=== PATIENT | male | born 1995 | race Native Hawaiian/Other Pacific Islander ===

== ENCOUNTER 2025-03-11 00:36 | Emergency (ER) | payer MEDICAID ==
[~2025-03-11] VITALS: Ht 195.6 cm; Wt 163.6 kg
--- NOTE | 2025-03-11 00:45 | Physician Documentation ---
History of Present Illness ~ Stated Complaint: CP Time Seen by MD: 00:42 HPI This is a 29-year-old gentleman with a family history of AFib in all his siblings, known history of arrhythmia of unknown etiology, presents for evaluation of sudden onset substernal chest pain that he describes as sharp, less than 30 seconds, radiating to his right arm all the way down to his wrist, gradually improving on its own without any medication. This occurred shortly prior to arrival without any obvious trigger, trauma provocation. The particular palliating or aggravating factors were elicited with the patient. She did not shortness a breath accompanying this event. This has been ever happened in the past. No formal diagnosis of AFib. No history of coronary artery disease. No history of hypotension. Used to weigh 500 lb and lost approximately 160 lb. He smokes a little bit of marijuana before bed denies use of tobacco, alcohol or illicit substances. Medication Reconciliation Allergies: Coded Allergies: No Known Allergies (Unverified , 03/11/25) Review of Systems ROS 10 point review of systems was performed and unless noted above in HPI is negative for acute process/complaint. Physical Exam Physical Exam GENERAL: Awake, alert, oriented, GCS 15, no apparent distress, non-toxic appearing, answers questions, follows commands appropriately. Examined in bed 8. HEENT: Atraumatic, normocephalic, pupils equal, extraocular muscles intact, sclerae anicteric, mucus membranes moist, oropharynx is clear, no stridor. NECK: supple, full active range of motion, trachea midline, no thyromegaly, no lymphadenopathy, no JVD. CARDIOVASCULAR: regular rate/rhythm, no murmurs/gallops/rubs, Pulses are 2+ in all extremities and symmetric. Capillary refill less than 2 seconds. PULMONARY: Nonlabored, good air movement ,no respiratory distress, speaking in full sentences, clear to auscultation bilaterally, no wheezing, no ronchi, no rales, no accessory muscle use. GASTROINTESTINAL: Soft, non-tender, non-distended, normal active bowel sounds, no organomegaly, no pulsatile masses, no CVA tenderness. NEUROLOGIC: Lucid with normal mental status. Normal facial symmetry. Moves all extremities symmetrically and with purpose. No truncal ataxia. Speech is fluid without evidence of dysarthria or aphasia, no focal deficits appreciated. MUSCULOSKELETAL: There is full range of motion of all extremities. There is no joint pain or joint swelling or joint erythema. There is no muscle pain or tenderness or swelling. EXTREMITIES: warm, well-perfused, no cyanosis, no clubbing, no edema, no acute deformities. Skin: warm, dry, no rashes or lesions, no jaundice, no petechiae orpurpura. No ecchymosis. PSYCHIATRIC: Normal affect, normal insight, normal concentration. Focused exam: [] Progress Results/Orders Results/Orders Orders - LISSET IZAGUIRRE DO Electrocardiogram (03/11/25 00:42) Chest,Single View (03/11/25 01:08) Completed Orders - LISSET IZAGUIRRE DO Cbc/Diff (03/11/25 00:42) D-Dimer (03/11/25 00:42) MG (03/11/25 00:42) CMP (03/11/25 00:42) Hs Troponin I W Calculations (03/11/25 00:42) Hs Troponin I W Calculations (03/11/25 02:42) Hs Troponin I W Calculations (03/11/25 03:42) Chest,Single View (03/11/25 01:08) Metoprolol Tartrate Inj (Lopressor Iv) (03/11/25 02:25) Medications Received in ER Medications (Trade) Dose Ordered Sig/Shruthi Route PRN Reason Start Time Stop Time Status Last Admin Dose Admin (Lopressor IV) 5 mg ONCE ONCE IV 03/11/25 02:25 03/11/25 02:26 DC 03/11/25 02:26 5 MG Vital Signs 03/11/25 03/11/25 03/11/25 03/11/25 00:43 01:02 02:04 02:26 Pulse 69 75 95 Resp 20 14 B/P (MAP) 159/128 159/128 (138) Pulse Ox 97 96 O2 Flow Rate 0 0 03/11/25 02:33 Pulse 91 Resp 25 B/P (MAP) 140/86 (104) Pulse Ox 97 Laboratory Tests Test 03/11/25 00:44 03/11/25 02:57 03/11/25 04:03 White Blood Count 12.5 H Red Blood Count 4.80 Hemoglobin 14.7 Hematocrit 43.3 Mean Corpuscular Volume 90.2 Mean Corpuscular Hemoglobin 30.6 Mean Corpuscular Hemoglobin Concent 33.9 Red Cell Distribution Width 13.4 Platelet Count 272 Mean Platelet Volume 7.9 Neutrophils (%) (Auto) 55.3 Lymphocytes (%) (Auto) 31.7 Monocytes (%) (Auto) 7.4 Eosinophils (%) (Auto) 4.8 Basophils (%) (Auto) 0.8 Neutrophils # (Auto) 6.9 Lymphocytes # (Auto) 4.0 Monocytes # (Auto) 0.9 Eosinophils # (Auto) 0.6 Basophils # (Auto) 0.1 CBC Comment D-Dimer 0.43 D-Dimer Comment Sodium Level 141 Potassium Level 3.5 Chloride Level 106 Carbon Dioxide Level 25.9 Anion Gap 9 Blood Urea Nitrogen 11 Creatinine 1.00 Estimated GFR/1.73 m2 90 BUN/Creatinine Ratio 11.0 Glucose Level 114 H Calcium Level 8.6 Magnesium Level 1.9 Total Bilirubin 0.4 Aspartate Amino Transf (AST/SGOT) 41 H Alanine Aminotransferase (ALT/SGPT) 48 Alkaline Phosphatase 80 Troponin I High Sensitivity 9 11 12 Total Protein 7.8 Albumin 3.4 Globulin 4.4 H Albumin/Globulin Ratio 0.8 L Chemistry Comments Troponin I High Sens Percent Delta 22 9 Troponin I Hi Sens Absolute Change 2 1 EKG/XRAY/CT/US/VASC/MRI EKG : Additional Comment EKG was obtained and interpreted by myself showing atrial fibrillation, rate of 99, narrow QRS, no QT prolongation, normal axis, no STEMI. Medical Decision Making Findings Facility Status: ED Holds, RME process The plan was discussed with the patient, who demonstrates clear understanding of the plan and is in agreement with the plan unless otherwise noted in the chart. All questions have been answered, all concerns were addressed unless otherwise documented. I was available throughout their ED stay for frequent reassessment and questions. Differential Diagnoses (considered and possible or likely): [Differential diagnosis considered includes chest wall pain, pleurisy, pneumonia, pulmonary e mbolus, GERD, esophagitis, gastritis, anxiety, stress reaction, costochondritis, acute coronary syndrome, aortic dissection, pericarditis, myocarditis, or pneumothorax.] ??Differential Diagnoses (considered and unlikely, not requiring evaluation currently): [Aortic/great vessels dissection was considered but it is unlikely based on absence of ripping, tearing, migratory chest pain, absence of syncope or focal neurologic deficits, physical examination indicating equal and symmetric pulses.] MDM Data Please see [facility] for the following: Independent Historians and external Records Review. Historian: [Patient] Independent Historians: ?[] Medication Management: [Reviewed medication list] Social History and determinants: [Reviewed] Please see the body of the note for the following: Any independent interpretations of ECG, imaging studies. All vitals signs/haemodynamics, ordered tests were independently reviewed and interpreted by myself. Nursing triage complaint and vitals reviewed, additional nursing notes were reviewed as available and I agree unless otherwise noted or documented in contradiction in the chart Vital Signs: Independently reviewed Labs: Independently interpreted Imaging: Independently interpreted Old Medical Records: Independently reviewed, see [facility] for relevant summary and information Pulse Oximetry: [99%] interpreted as [normal on room air] by me [[employer]: Irregularly irregular with frequent PVCs. AFib.] reviewed and interpreted by me] Additionally notably showing: [Hemodynamics reviewed. The patient is not febrile, not tachycardic, no evidence of hypotension respiratory distress. CBC normal. Metabolic panel is essentially unremarkable. Three troponins are negative. The particular D-dimer is negative. Chest x-ray is unremarkable. Tests considered but not ordered include: [CT angiography has been considerably does not appear to be necessary given negative D-dimer] Social Determinants of Health Impact: Patient was evaluated in [facility] [place] to healthcare due to below par ratio of patient to medical providers. [] Comorbid Conditions Impacting Present Evaluation and Care/Treatment: [Suspect a history of AFib without formal diagnosis] Management Discussions with other Healthcare Providers: [None] Treatment and Disposition Medication Management (Given or considered): []. See EMR for details Consideration for Hospitalization/Escalation/Deescalation of Care: Admission for observation has been considered, [however the patient is able to tolerate p.o., their symptoms are controlled, they are able to rely on oral medications, and their chief complaint/diagnosis can be managed on outpatient basis.] ?ED Course:?[No clinical deterioration] ?Shared decision making:?[Patient is hemodynamically stable for discharge home with follow with their primary care provider. [ ] Specific and cautious return precautions provided and discussed with full understanding. Any incidental findings were also discussed and follow up recommendations given. [] All que stions answered. Patient/family were able to verbalize back return precautions. Patient/family agree to plan. Copies of imaging and laboratory studies were provided.] Code status:?FULL Please see the full Electronic Medical Record for full details of nursing documentation, medications list, other records of complete past medical history and conditions, vital signs, laboratory studies, and any radiologic study interpretations by radiologists. Portions of this note were completed using [employer] dictation software and as a result there may exist minor errors in spelling. I have reviewed elements of past family and social history and agree as included in note. Departure Disposition: HOME / SELF CARE / HOMELESS Impression: Primary Impression: Acute chest pain Additional Impression: Atrial fibrillation Condition: Improved Discharge Instructions: Atrial Fibrillation, Nonspecific Chest Pain, Adult, Preventing Atrial Fibrillation-Related Stroke Referrals: NO PRIMARY CARE PROVIDER (PCP) Prescriptions Metoprolol Tartrate (Metoprolol Tartrate) 25 Mg Tablet 1 TAB PO Q12H for 30 Days, #60 TAB 0 Refills Prov: LISSET IZAGUIRRE DO 03/11/25 Education Educated: Patient Educated regarding: diagnosis, treatment, prognosis, need for follow up Signature Scribe Signature: No scribe Attestation: This note accurately reflects clinical decisions, work performed by myself, DO DMITRIY Torres NICHOLAS M DO Mar 11, 2025 00:45
[2025-03-11 00:52] LABS: BASOPHILS # (AUTO) 0.1 X10'3 (0-0.2); BASOPHILS % (AUTO) 0.8 % (0-1); EOSINOPHILS # (AUTO) 0.6 X10'3 (0-0.9); EOSINOPHILS % (AUTO) 4.8 % (0-6); HEMATOCRIT 43.3 % (42.0-52.0); HEMOGLOBIN 14.7 g/dl (14.0-17.9); LYMPHOCYTES % (AUTO) 31.7 % (21-51); MEAN CORPUSCULAR HEMOGLOBIN 30.6 PG (27.0-31.0); MEAN CORPUSCULAR HGB CONC 33.9 g/dL (33.0-36.5); MEAN CORPUSCULAR VOLUME 90.2 FL (78-98); MEAN PLATELET VOLUME 7.9 FL (7.4-10.4); MONOCYTES # (AUTO) 0.9 X10'3 (0-0.9); MONOCYTES % (AUTO) 7.4 % (2-12); NEUTROPHILS # (AUTO) 6.9 X10'3 (1.8-7.7); NEUTROPHILS % (AUTO) 55.3 % (42-75); PLATELET COUNT 272 X10'3 (140-440); RED CELL DISTRIBUTION WIDTH 13.4 % (11.5-14.5); WHITE BLOOD COUNT 12.5 X10'3 (4.5-11.0)
[2025-03-11 01:04] LABS: D-DIMER 0.43 MG/L FEU (0-0.50)
[2025-03-11 01:06] LABS: ALANINE AMINOTRANSFERASE 48 U/L (12-78); ALBUMIN 3.4 G/DL (3.4-5.0); ALBUMIN/GLOBULIN RATIO 0.8 (1.1-1.5); ALKALINE PHOSPHATASE 80 IU/L (46-116); ANION GAP 9 (8-16); ASPARTATE AMINO TRANSFERASE 41 U/L (10-37); BILIRUBIN,TOTAL 0.4 MG/DL (0.1-1.0); BLOOD UREA NITROGEN 11 MG/DL (7-18); CALCIUM 8.6 MG/DL (8.5-10.1); CHLORIDE 106 MMOL/L (99-107); GLUCOSE 114 MG/DL (70-104); MAGNESIUM 1.9 MG/DL (1.5-2.4); POTASSIUM 3.5 MMOL/L (3.5-5.1); SODIUM 141 MMOL/L (135-145); TOTAL CARBON DIOXIDE 25.9 MMOL/L (24-32); TOTAL PROTEIN 7.8 G/DL (6.4-8.2); eCRCL 140 ML/MIN; eGFR 90 ML/MIN
--- NOTE | 2025-03-11 01:30 | RADIOLOGY REPORT ---
CHEST RADIOGRAPH Indication: Chest pain Technique: Single frontal view of the chest was obtained COMPARISON: None FINDINGS: Lines and Tubes: None Lungs: Clear Pleura: No effusion. No pneumothorax. Cardiomediastinal contours: Unremarkable Bones: Unremarkable IMPRESSION: 1. No acute disease.
[2025-03-11] MEDS: metoprolol tartrate 1mg/ml inj IV ONE (02:26)
[2025-03-11] MEDS ORDERED: METO25TA6 PO (05:26)
[2025-03-11 05:48] VITALS: BP 108/64; PULSE 78; RESP 14; TEMP 98.6; O2SAT 95
--- NOTE | 2025-03-11 06:52 | ELECTROCARDIOGRAPH REPORT ---
[facility] Test Date: 2025-03-11 Test Time: 00:48:44 Pat Name: FADY BARRIOS Department: [facility]-ER Patient ID: [id number] Room: Gender: M Credentialing Specialist: : 1995 Requested By: LISSET IZAGUIRRE Order Number: [id number] Reading MD: Measurements Intervals Lindsey Rate: 99 P: 0 MS: 0 QRS: 47 QRSD: 99 T: 32 QT: 338 QTc: 434 Interpretive Statements Atrial fibrillation Please click the below link to view image of tracing.
== END 2025-03-11 05:42 | disposition home or self-care (01) ==
LOC: ER 00:36
DX: R07.89 Other chest pain (principal); I48.91 Unspecified atrial fibrillation; F17.200 Nicotine dependence, unspecified, uncomplicated
CPT/HCPCS: 36415; 71045; 80053; 83735; 84484; 85025; 85379; 93005; 96374; 99285; J3490

== ENCOUNTER 2025-04-27 15:39 | Emergency (ER) | payer MEDICAID ==
[~2025-04-27] VITALS: Ht 195.6 cm; Wt 162.4 kg
[~2025-04-27 15:39] MED LIST: METO25TA6 PO
--- NOTE | 2025-04-27 15:55 | ELECTROCARDIOGRAPH REPORT ---
[facility] Test Date: 2025-04-27 Test Time: 15:51:51 Pat Name: FADY BARRIOS Department: EMERGENCY ROOM Room: Gender: M Patient Coordinator: WILLOW : 1995 Requested By: ERICK DALAL Order Number: [id number] Reading MD: Dr. Med Sanabria Measurements Intervals Superior Rate: 58 P: -7 MI: 119 QRS: 47 QRSD: 100 T: 33 QT: 413 QTc: 406 Interpretive Statements Sinus bradycardia Ventricular premature complex Borderline short MI interval Electronically Signed On 04-27-2025 22:27:[address] Med Sanabria Please click the below link to view image of tracing.
[2025-04-27 16:15] LABS: MEAN PLATELET VOLUME 7.8 FL (7.4-10.4); RED CELL DISTRIBUTION WIDTH 13.5 % (11.5-14.5)
--- NOTE | 2025-04-27 16:19 | Physician Documentation ---
History of Present Illness ~ Chief Complaint: Chest Pain Stated Complaint: L RIB PAIN Time Seen by MD: 16:13 HPI This is a 29-year-old male who presents to the emergency department for intermittent chest pain over the last week. He became concerned today when the pain was also accompanied by nausea and vomiting. This prompted him to present to the emergency department. He does also note that he has diarrhea, but this is a long-term issue. No black or bloody stools. Denies any medical history other than a history of atrial fib that is intermittent. Does not currently take any medications. Has not been told that he is diabetic or has any other [facility] conditions or problems. He does smoke tobacco rarely, but smokes marijuana daily. Denies drug or alcohol use. Medication Reconciliation Allergies: Coded Allergies: No Known Allergies (Unverified , 04/27/25) Scheduled Metoprolol Tartrate (Metoprolol Tartrate), 1 TAB PO Q12H Naproxen (Naproxen), 1 TAB PO Q12H Pantoprazole Sodium (PROTONIX tablet), 1 TAB PO DAILY Review of Systems ROS As stated above in the HPI, otherwise all systems are reviewed and negative. Physical Exam Vital Signs: Temperature: 97.9, Source: Temporal, Heart Rate: 61, Respiratory Rate: 16, BP: 141/88, Pulse Oximetry: 99, Weight: 162.450 Oxygen Flow Rate: 0 Physical Exam General: Alert, no apparent distress. HEENT: PERRL, EOMI, no injection, moist mucous membranes. Neck: Full range of motion. Respiratory: Lungs clear, no respiratory distress. Chest: No accessory muscle use. Cardiovascular: Regular rate and rhythm, no murmurs. Gastrointestinal: Soft, nontender, nondistended. Bowels sounds present. Extremities: Normal range of motion, no deformity. Neurologic: Oriented x4. Psychiatric: Normal mood and affect. Skin: Normal color, warm and dry. No edema, no ecchymosis. Progress Results/Orders Results/Orders Completed Orders - MARY KATE DUKE NP Ketorolac Trometh 15mg/Ml Vial (Toradol (04/27/25 16:45) Ondansetron Inj. (Zofran 4mg/2ml Vial) (04/27/25 16:45) Vital Signs 04/27/25 04/27/25 04/27/25 15:45 16:21 16:24 Temp 97.9 Pulse 61 55 Resp 16 12 B/P (MAP) 141/88 134/67 (89) Pulse Ox 99 99 O2 Flow Rate 0 0 Laboratory Tests Test 04/27/25 16:02 White Blood Count 13.0 H Red Blood Count 4.70 Hemoglobin 14.2 Hematocrit 42.4 Mean Corpuscular Volume 90.3 Mean Corpuscular Hemoglobin 30.3 Mean Corpuscular Hemoglobin Concent 33.6 Red Cell Distribution Width 13.5 Platelet Count 253 Mean Platelet Volume 7.8 Neutrophils (%) (Auto) 61.7 Lymphocytes (%) (Auto) 27.0 Monocytes (%) (Auto) 8.4 Eosinophils (%) (Auto) 2.4 Basophils (%) (Auto) 0.5 Neutrophils # (Auto) 8.0 H Lymphocytes # (Auto) 3.5 Monocytes # (Auto) 1.1 H Eosinophils # (Auto) 0.3 Basophils # (Auto) 0.1 CBC Comment Sodium Level 139 Potassium Level 3.9 Chloride Level 102 Carbon Dioxide Level 30.3 Anion Gap 7 L Blood Urea Nitrogen 8 Creatinine 0.93 Estimated GFR/1.73 m2 > 90 BUN/Creatinine Ratio 8.6 L Glucose Level 83 Calcium Level 8.5 Troponin I High Sensitivity 8 Albumin 3.6 Lipase 27 Chemistry Comments EKG/XRAY/CT/US/VASC/MRI EKG : Additional Comment 1011 EKG interpreted to show sinus bradycarida rate of 58. No ectopy or ST se gment elevation. QTC 406 ms. Heart Score: Heart Score Response (Comments) Value History Moderate Suspicious 1 EKG Normal 0 Age <45 0 Risk Factors No known risk factors 0 Troponin Normal limit 0 Total 1 Medical Decision Making Differential Dx:Considerations: Include: angina, aortic dissection, chest wall pain, cholelithiasis, CHF, costochondritis, esophageal reflux/spasm, gastritis, herpes zoster, myocardial infarction, pericarditis, pleuritis, pancreatitis, pneumonia, pneumothorax, pulmonary embolus Additional Information Negative troponin. Normal BNP. Normal EKG. Will be treated for GERD/ulcer and also for costochrondritis. Is to return if worse. Departure Time of Disposition: 16:45 Disposition: 01 HOME / SELF CARE / HOMELESS Impression: Primary Impression: Tenderness of chest wall Additional Impression: Diarrhea Condition: Stable Discharge Instructions: Chest Wall Pain, Costochondritis, Gastroesophageal Reflux Disease, Adult Additional Instructions: Normal heart work up today including normal troponin, normal chest xray, and normal EKG. Your pain is suspected to be caused by chest wall/costochondritis pain. It may also be caused by acid reflux or an ulcer. You will be treated for both the chest wall pain and the possible acid reflux. See your primary care provider soon. Request a referral pertinent to your chronic diarrhea. Return if worse, such as for severe pain, fever over 101, or any other concerns that your condition has gotten worse rather than better. Referrals: NO PRIMARY CARE PROVIDER (PCP) Prescriptions Naproxen (Naproxen) 500 Mg Tablet 1 TAB PO Q12H, #20 TAB Prov: MARY KATE DUKE NP 04/27/25 Pantoprazole Sodium (PROTONIX tablet) 40 Mg Tablet.dr 1 TAB PO DAILY for 30 Days, #30 TAB 0 Refills Prov: MARY KATE DUKE NP 04/27/25 Education Educated: Patient Educated regarding: diagnosis, treatment, prognosis, need for follow up Signature Scribe Signature: x Attestation: The note accurately reflects work and decisions made by me.Mary Kate Abbasi NP 04/27/25 16:18 MARY KATE DUKE NP Apr 27, 2025 16:19
--- NOTE | 2025-04-27 16:21 | RADIOLOGY REPORT ---
CHEST RADIOGRAPH Indication: CP Technique: Single frontal view of the chest was obtained Comparison: DI CHEST,SINGLE VIEW on DOS: 03/11/25 FINDINGS: Lines and Tubes: None Lungs: No focal consolidation. Pleura: No effusion. No pneumothorax. Cardiomediastinal contours: Unremarkable Bones: No acute osseous abnormality. IMPRESSION: No acute cardiopulmonary disease.
[2025-04-27 16:25] LABS: CREATININE 0.93 MG/DL (0.60-1.10); TOTAL CARBON DIOXIDE 30.3 MMOL/L (24-32); eCRCL 150 ML/MIN; eGFR > 90 ML/MIN
[2025-04-27] MEDS ORDERED: ketorolac trometh 15mg/ml vial 15 MG/ML ML IV ONE (16:45)
[2025-04-27] MEDS ORDERED: ondansetron/PF 4mg/2ml inj IV ONE (16:45)
[2025-04-27] MEDS ORDERED: NAPR-56 PO (16:47)
[2025-04-27] MEDS ORDERED: PANT-47 PO (16:47)
[2025-04-27] MEDS: ondansetron 4mg rapidly disintigrating tab PO ONE (16:59)
[2025-04-27] MEDS: ketorolac trometh 30MG/ML vial 30 MG/ML VIAL IM ONE (17:00)
[2025-04-27 17:08] VITALS: BP 138/82; PULSE 60; RESP 14; TEMP 97.9; O2SAT 100
== END 2025-04-27 17:00 | disposition home or self-care (01) ==
LOC: ER 15:40
DX: R07.89 Other chest pain (principal); R19.7 Diarrhea, unspecified; I49.3 Ventricular premature depolarization; Z79.899 Other long term (current) drug therapy
CPT/HCPCS: 36415; 71045; 80048; 83690; 84484; 85025; 93005; 96372; 99285; J1885

== ENCOUNTER 2025-06-25 22:17 | Emergency (ER) | payer MEDICAID ==
[~2025-06-25] VITALS: Ht 193 cm; Wt 166.0 kg
[~2025-06-25 22:17] MED LIST changes: +PANT-47 PO
[2025-06-25 22:20] VITALS: BP 141/85; PULSE 65; RESP 18; O2SAT 99
[2025-06-25] MEDS ORDERED: IBUP-1984 PO (22:53)
--- NOTE | 2025-06-25 22:53 | Physician Documentation ---
History of Present Illness ~ Chief Complaint: Hand pain Stated Complaint: RIGHT HAND SWELLING Time Seen by MD: 22:27 HPI 29-year-old male right-hand dominant presents to the emergency department for evaluation of right ring finger pain with movement. Reports that there was swelling yesterday at in the since resolved. Continues to have a full sensation of the finger with reduced range of motion. Denies recent illness injury or infection. No reported fever prior history of the same. Tetanus within 5 years: No Medication Reconciliation Allergies: Coded Allergies: No Known Allergies (Unverified , 04/27/25) Scheduled Doxycycline Monohydrate (Doxycycline Monohydrate), 100 MG PO BID Ibuprofen* (Motrin*), 800 MG PO Q8H Metoprolol Tartrate (Metoprolol Tartrate), 1 TAB PO Q12H Pantoprazole Sodium (PROTONIX tablet), 1 TAB PO DAILY Review of Systems All Other Systems at this time: Reviewed and Negative Musculoskeletal: Reports: see HPI Physical Exam Vital Signs: Temperature: 97.0, Source: Temporal, Heart Rate: 65, Respiratory Rate: 18, BP: 141/85, Pulse Oximetry: 99, Weight: 166.000 Oxygen Flow Rate: 0 General Appearance: alert, WD/WN, mild distress EENT: PERRL/EOMI Respiratory: no respiratory distress Wrist: normal inspection Hand: normal inspection Digit: soft tissue tenderness, other (Tenderness with flexion or use of the FDP/D IP) Digit Strength: decreased on flexion Skin: normal color Lymphatic: normal inspection Neurologic: oriented x4 Progress Results/Orders Results/Orders Orders - JOHN VIDES PAC Finger(S) (06/25/25 ) Completed Orders - JOHN VIDES PAC Finger(S) (06/25/25 ) Vital Signs 06/25/25 06/25/25 22:20 22:57 Temp 97.0 97.0 Pulse 65 Resp 18 B/P (MAP) 141/85 Pulse Ox 99 O2 Flow Rate 0 Medical Decision Making Additional Comment Right-hand dominant 29-year-old male with examination history consistent with early flexor tenosynovitis of the right ring finger. No obvious abscesses cellulitis yet reproducible pain with flexor use. We will go ahead and begin prophylactic antibiotic and recommend NSAIDs and close follow up. Discharged from the emergency department safe stable condition. Departure Disposition: 01 HOME / SELF CARE / HOMELESS Impression: Primary Impression: Tenosynovitis of finger Condition: Stable Discharge Instructions: Tenosynovitis Additional Instructions: Please begin anti-inflammatory medication along with antibiotic for suspected ea rly infection associated with the inflammation he will be flexor tendon. Please follow up with the primary care physician and return to the emergency department if he has lost some mobility increased swelling or pain. Thank you for visiting [facility]. Your x-ray imaging tonight is reassuring for no obvious fracture. Referrals: NO PRIMARY CARE PROVIDER (PCP) Prescriptions Doxycycline Monohydrate (Doxycycline Monohydrate) 100 Mg Capsule 100 MG PO BID for 10 Days, #20 CAP may sub doxycycline hyclate or azithromycin z-pack as prescribed Prov: JOHN VIDES 06/25/25 Ibuprofen* (Motrin*) 400 Mg Tablet 800 MG PO Q8H for 10 Days, #30 TAB Prov: JOHN VIDES 06/25/25 Education Educated: Patient Educated regarding: diagnosis, treatment, prognosis Signature Scribe Signature: . Attestation: . JOHN VIDES Jun 25, 2025 22:53
[2025-06-25 22:57] VITALS: TEMP 97
[2025-06-25] MEDS ORDERED: DOXY100C43 PO (22:59)
--- NOTE | 2025-06-25 23:12 | RADIOLOGY REPORT ---
CLINICAL INDICATION: FB TECHNIQUE: FINGERSDI FINGER(S), RIGHT Comparison: None FINDINGS/IMPRESSION: : There is no evidence of acute fracture or dislocation. Soft tissues are unremarkable. No radiopaque foreign body.
== END 2025-06-25 23:14 | disposition home or self-care (01) ==
LOC: ER 22:17
DX: M65.841 Other synovitis and tenosynovitis, right hand (principal); Z79.899 Other long term (current) drug therapy
CPT/HCPCS: 73140; 99283